=== PATIENT | male | born 1960 | race African-American/Black ===

== ENCOUNTER 2017-09-03 09:05 | Day surgery (SDC) | payer OTHER ==
[2017-09-02 12:12] VITALS: BMI 23.0
[~2017-09-03 09:05] MED LIST: oxyCODONE HCL 10 MG SUSTAINED ACTING TABLET PO ONE
[2017-09-03] MEDS ORDERED: DEXAMETHASONE SOD PHOSPHATE/PF 10 MG/ML SDV ONE (10:17)
[2017-09-03] MEDS ORDERED: MIDAZOLAM HCL 2 MG/2 ML SINGLE DOSE VIAL ONE ×2 (10:18→12:18)
[2017-09-03] MEDS ORDERED: BUPIVACAINE HCL/PF (5 MG/ML) 30 ML VIAL IJ ONE (10:18)
[2017-09-03] MEDS ORDERED: methylPREDNISolone ACET (DEPO) 40 MG/1 ML VIAL ONE (11:33)
[2017-09-03] MEDS ORDERED: THROMBIN (BOVINE) 5,000 UNIT VIAL TP ONE ×2 (11:33→13:15)
[2017-09-03] MEDS ORDERED: LIDOCAINE 1%/EPI 1:100000 (20 ML MULTI DOSE VIAL) ONE (11:34)
--- NOTE | 2017-09-03 11:38 | HP ---
History & Physical Update - History History: No Change - Physical Physical: No Change - Assessment Assessment: No Change - Plan Plan: No Change
[2017-09-03] MEDS ORDERED: LIDOCAINE 1%/EPI 1:100000 (50 ML MULTI DOSE VIAL) INF ONE (13:14)
[2017-09-03] MEDS ORDERED: GELATIN SPONGE,ABSORBABLE 1 GM PACKET TP ONE (13:16)
[2017-09-03] MEDS ORDERED: methylPREDNISolone ACET (DEPO) 40 MG/1 ML VIAL IM ONE (13:36)
[2017-09-03] MEDS ORDERED: oxyCODONE HCL 5 MG TABLET PO PRN (15:00)
[2017-09-03] MEDS ORDERED: ONDANSETRON 4 MG/2 ML VIAL IVPUSH PRN (15:00)
[2017-09-03] MEDS ORDERED: LACTATED RINGERS SOLUTION 1,000 ML IV SCH (15:00)
--- NOTE | 2017-09-03 16:20 | OP ---
DATE OF OPERATION: 09/03/2017 PREOPERATIVE DIAGNOSIS: Spinal stenosis, L4-5. POSTOPERATIVE DIAGNOSIS: Spinal stenosis, L4-5. PROCEDURE PERFORMED: Laminectomy, L4-5. SURGEON: Raymundo Hardwick MD [employer] SPECIALIST: DOLLY Roblero ESTIMATED BLOOD LOSS: 50 mL INTRAVENOUS FLUIDS: Per Anesthesia. ANESTHESIA: Spinal/TLIP. COMPLICATIONS: None. DISPOSITION: Patient brought to the PACU in stable condition. INDICATIONS FOR SURGERY: The patient is a 56-year-old gentleman who has been suffering from pain from his back down his leg. X-rays and MRI were completed which noted that he had spinal stenosis at L4-5. He had gone through an exhaustive course of treatment for this, which included medications, physical therapy as well as injections. Unfortunately, his pain continued to persist despite all this. At this point, risks, benefits, and alternatives were discussed, and the patient consented to surgery. DESCRIPTION OF PROCEDURE: The patient was brought to the operating room by the Anesthesia staff. After appropriate patient identification was performed, spinal anesthesia/TLIP was given. Patient was placed prone onto the Antonino frame. He was able to position himself to avoid all areas of bony prominences at this time. Two needles were placed into his back to [place] off the L4-5 segment. X-ray was taken to confirm this as correct. [place] were removed, and 10 mL of lidocaine with epinephrine were injected into his back at this time. His back was prepped and draped in a sterile manner. At this point, a timeout was completed. An incision was made from the top of L4 down to the bottom of L5. Dissection was carried down to the fascia. The fascia was split open at this time, and appropriate retractors were then placed in. A spinal needle was placed onto the L4 lamina. An x-ray was taken to confirm this as correct. The needle was removed, and the interspinous ligament at L4-5 was removed. Portion of the L4 and L5 lamina were removed. The flavum was identified, was removed. A complete decompression was performed such that by the end of the procedure, the L5 nerve root appeared to be well decompressed. All bleeding was well controlled at this time. Steroid was placed over the nerve root. FloSeal was placed over that. The fascia was closed with a No. 1 Vicryl suture. Subcutaneous tissues were closed with 2-0 Vicryl suture. Skin was closed with 3-0 Monocryl suture. Dermabond was applied. Steri-Strips were applied. A sterile dressing was applied. Patient was placed supine on the OR bed and brought to the PACU in stable condition. Jimmy FAUSTIN/[id number]
--- NOTE | 2017-09-03 16:44 | OP ---
Operative Note - Note: Operative Date: 09/03/17 Pre-Operative Diagnosis: spinal stenosis Operation: laminectomy of L4-L5 Surgeon: Raymundo Hardwick Director Of Rehabilitation And Wellness: Holly Saunders Anesthesiologist/BOTTLER: Sunday Scruggs Anesthesia: Spinal Estimated Blood Loss (mls): 20 Fluid Volume Replaced (mls): 2,000 Operative Report Dictated: Yes
--- NOTE | 2017-09-03 16:45 | SURG ---
Surgery Shovel Mechanic Note Shovel Mechanic: Holly Saunders PA-C Date of Service: 09/03/17 Diagnosis: lumbar stenosis Procedure: laminectomy of L4-L5 I was present for the entirety of the operative procedure. For further detail, please refer to operative report. Visit type - Case Type Case Type: Scheduled Admission - Emergency Emergency Visit: No - New patient This patient is new to me today: Yes Date on this admission: 09/03/17
[2017-09-03 19:28] VITALS: TEMP 98
[2017-09-03 19:35] VITALS: PULSE 63
[2017-09-03 19:38] VITALS: BP 120/70
== END 2017-09-03 17:30 | disposition home or self-care (01) ==
LOC: FASU 09:05
PROVIDERS: ATTEND Orthopaedic Surgery Orthopaedic Surgery of the Spine
PROC: 01NB0ZZ Release Lumbar Nerve, Open Approach (ICD-10-PCS; principal; 2017-09-03 12:54)
DX: M48.061 Spinal stenosis, lumbar region without neurogenic claudication (principal)
CPT/HCPCS: 72100-TC-FY; 94760